=== PATIENT | female | born 1970 | race Caucasian/White ===

== ENCOUNTER → 2016-11-02 | Outpatient (CLI) | payer OTHER ==
[~2016-11-02] MED LIST: ASCO-96 PO; FLUT1DIS3 INH; HYDR-3237 PO; LEVA0.6320 INH; LORA10TA37 PO; MULT-257 PO; OMEG1CAP56 PO; OMEP-110 PO; OXYC-306 PO
== END | disposition home or self-care (01) ==
LOC: CVU 12:38
PROVIDERS: ATTEND Nurse Practitioner Primary Care
DX: I07.1 Rheumatic tricuspid insufficiency (principal); J45.909 Unspecified asthma, uncomplicated; Z87.891 Personal history of nicotine dependence; Z79.899 Other long term (current) drug therapy
CPT/HCPCS: 93306

== ENCOUNTER 2017-09-03 13:53 | Observation (INO) | payer OTHER ==
[~2017-09-03] VITALS: Ht 165.1 cm; Wt 106.9 kg
[~2017-09-03 13:53] MED LIST changes: +OMEG-172 PO; -OMEG1CAP56 PO
[2017-09-03] MEDS ORDERED: ASPIRIN 81 MG TABLET CHEW ONE (14:23)
[2017-09-03] MEDS ORDERED: ASPIRIN 81 MG TABLET CHEW PO ONE (14:30)
[2017-09-03] MEDS ORDERED: NITROGLYCERIN SINGLE TAB 0.4 MG SL ONE (14:36)
[2017-09-03 14:38] LABS: ALANINE AMINOTRANSFERASE 30 U/L (12-78); ALBUMIN 3.6 g/dL (3.4-5.0); ANION GAP 6 mmol/L (5-15); BASOPHILS # (AUTO) 0.12 x10^3/uL (0-0.1); BASOPHILS % (AUTO) 1 % (0-1); CALCIUM 9.1 mg/dL (8.5-10.1); CHLORIDE 106 mmol/L (98-107); CREATININE 0.89 mg/dL (0.55-1.02); EOSINOPHILS # (AUTO) 0.31 x10^3/uL (0-0.4); EOSINOPHILS % (AUTO) 3 % (1-7); LYMPHOCYTES # (AUTO) 2.86 x10^3/uL (1-3.4); LYMPHOCYTES % (AUTO) 28 % (22-44); MD NO; MEAN CORPUSCULAR HGB CONC 32.9 g/dL (32.4-35.8); MEAN CORPUSCULAR VOLUME 79.1 fL (80-100); MONOCYTES # (AUTO) 0.54 x10^3/uL (0.2-0.8); MONOCYTES % (AUTO) 5 % (2-9); NEUTROPHILS # (AUTO) 6.26 x10^3/uL (1.8-6.8); NEUTROPHILS % (AUTO) 62 % (42-75); PLATELET COUNT 352 x10^3/uL (130-400); RED BLOOD COUNT 5.74 x10^6/uL (3.82-5.3); RED CELL DISTRIBUTION WIDTH 15.4 % (9.6-15.2)
[2017-09-03 14:42] LABS: ALKALINE PHOSPHATASE 89 U/L (45-117); BILIRUBIN,TOTAL 0.4 mg/dL (0.2-1.0); TOTAL PROTEIN 7.7 g/dL (6.4-8.2); TROPONIN I < 0.015 ng/mL (0.000-0.045)
[2017-09-03] MEDS: NITROGLYCERIN SINGLE TAB 0.4 MG SL PRN ×3 (14:45→15:00)
[2017-09-03] MEDS ORDERED: MAALOX/HYOSCYAMINE/LIDOCAINE 45 ML BTL ONE (15:16)
[2017-09-03] MEDS ORDERED: MAALOX/HYOSCYAMINE/LIDOCAINE 45 ML BTL PO ONE (15:30)
[2017-09-03] MEDS ORDERED: MORPHINE SULFATE 4 MG/ML, 1ML ONE (16:25)
[2017-09-03] MEDS ORDERED: morphine SULFATE 10 MG/ML, 1ML IVPush ONE (16:30)
[2017-09-03] MEDS ORDERED: POLYETHYLENE GLYCOL 17 GM PACKET PO PRN (16:30)
[2017-09-03] MEDS ORDERED: ONDANSETRON ODT 4 MG PO PRN (16:30)
[2017-09-03] MEDS ORDERED: LABETALOL 5MG/ML, 20ML IVPush PRN (16:30)
[2017-09-03] MEDS ORDERED: morphine SULFATE 10 MG/ML, 1ML IVPush PRN (16:30)
[2017-09-03] MEDS ORDERED: ONDANSETRON 2MG/ML, 2ML IVPush PRN (16:30)
[2017-09-03] MEDS ORDERED: IRON SUCROSE COMPLEX 100MG/5ML IV ONE (17:00)
[2017-09-03 17:09] LABS: CHOLESTEROL, TOTAL 127 mg/dL (140-239); FREE T4 (FREE THYROXINE) 1.05 ng/dL (0.76-1.46); HDL CHOL % 34 % (28-40); HDL CHOLESTEROL (DIRECT) 43 mg/dL (40-60); LDL CHOLESTEROL,CALCULATED 71 mg/dL (54-169); LDL/HDL RATIO 1.7 (0.5-3.0); TRIGLYCERIDES 63 mg/dL (50-200); TROPONIN I < 0.015 ng/mL (0.000-0.045); VLDL CHOLESTEROL 13 mg/dL (0-25)
[2017-09-03 17:28] VITALS: BP 120/82
[2017-09-03] MEDS ORDERED: ALBUTEROL SULFATE 2.5 MG/3 ML NPPB PRN (17:30)
[2017-09-03 17:34] LABS: HEMOGLOBIN A1C 6.4 % (4.2-6.3)
[2017-09-03] MEDS: ENOXAPARIN 40 MG/0.4 ML SQ SCH (18:41)
[2017-09-03 19:19] VITALS: BP 114/76
[2017-09-03] MEDS: TEMPLATE NON-FORMULARY MED. (Fluticasone/Salmeterol** (Advair 250-50 Diskus**) 1 PUFF) INH SCH (20:30)
[2017-09-03] MEDS: ASCORBIC ACID 500 MG TABLET PO SCH (20:30)
[2017-09-03 22:53] LABS: TROPONIN I < 0.015 ng/mL (0.000-0.045)
[2017-09-04 00:43] VITALS: BP 123/81
[2017-09-04] MEDS ORDERED: NITROGLYCERIN 0.4 MG BOTTLE (25 TABS) SL ONE (00:52)
[2017-09-04] MEDS ORDERED: NITROGLYCERIN 0.4 MG/SPRAY SL PRN (01:00)
[2017-09-04] MEDS ORDERED: NITROGLYCERIN 0.4 MG BOTTLE (25 TABS) SL PRN (01:00)
[2017-09-04 01:11] VITALS: BP 103/71
[2017-09-04] MEDS ORDERED: ACETAMINOPHEN 325 MG TABLET ONE (01:12)
[2017-09-04 01:14] VITALS: BP 113/72
[2017-09-04] MEDS ORDERED: ACETAMINOPHEN 325 MG TABLET PO PRN (01:30)
[2017-09-04 05:01] LABS: ANION GAP 5 mmol/L (5-15); CALCIUM 8.7 mg/dL (8.5-10.1); CHLORIDE 105 mmol/L (98-107)
[2017-09-04 05:04] LABS: BASOPHILS # (AUTO) 0.04 x10^3/uL (0-0.1); BASOPHILS % (AUTO) 1 % (0-1); EOSINOPHILS % (AUTO) 5 % (1-7); LYMPHOCYTES # (AUTO) 2.72 x10^3/uL (1-3.4); LYMPHOCYTES % (AUTO) 34 % (22-44); MD NO; MEAN CORPUSCULAR HEMOGLOBIN 25.8 pg (27.0-34.8); MEAN CORPUSCULAR HGB CONC 32.3 g/dL (32.4-35.8); MEAN CORPUSCULAR VOLUME 79.8 fL (80-100); MEAN PLATELET VOLUME 8.1 fL (7.4-10.4); MONOCYTES # (AUTO) 0.55 x10^3/uL (0.2-0.8); MONOCYTES % (AUTO) 7 % (2-9); NEUTROPHILS # (AUTO) 4.33 x10^3/uL (1.8-6.8); NEUTROPHILS % (AUTO) 54 % (42-75); PLATELET COUNT 288 x10^3/uL (130-400); RED BLOOD COUNT 5.07 x10^6/uL (3.82-5.3); RED CELL DISTRIBUTION WIDTH 15.7 % (9.6-15.2)
[2017-09-04 05:14] LABS: ALANINE AMINOTRANSFERASE 25 U/L (12-78); ALKALINE PHOSPHATASE 70 U/L (45-117); BILIRUBIN,TOTAL 0.7 mg/dL (0.2-1.0); CREATININE 0.82 mg/dL (0.55-1.02); TOTAL PROTEIN 6.6 g/dL (6.4-8.2)
[2017-09-04] MEDS ORDERED: ASPIRIN 81 MG TABLET EC PO SCH (06:00)
[2017-09-04] MEDS ORDERED: IRON SUCROSE COMPLEX 100MG/5ML IV ONE (07:00)
[2017-09-04 07:06] VITALS: BP 113/75
[2017-09-04] MEDS ORDERED: MAALOX/HYOSCYAMINE/LIDOCAINE 45 ML BTL PO ONE (08:00)
[2017-09-04] MEDS ORDERED: PANTOPRAZOLE 40 MG IV IVPush SCH (08:00)
[2017-09-04] MEDS ORDERED: LEVALBUTEROL HCL 0.63 MG INH SCH (09:00)
[2017-09-04] MEDS ORDERED: OMEGA-3/FISH OIL CAPSULE PO SCH (09:00)
[2017-09-04] MEDS ORDERED: OMEPRAZOLE 20 MG CAPSULE.DR PO SCH (09:00)
[2017-09-04] MEDS ORDERED: SENNA/DOCUSATE TABLET PO SCH (09:00)
[2017-09-04] MEDS: TEMPLATE NON-FORMULARY MED. (Fluticasone/Salmeterol** (Advair 250-50 Diskus**) 1 PUFF) INH SCH (09:00)
[2017-09-04] MEDS ORDERED: REGADENOSON 0.4 MG/5 ML SYRINGE ONE (09:36)
[2017-09-04] MEDS: ASCORBIC ACID 500 MG TABLET PO SCH (12:29)
[2017-09-04] MEDS ORDERED: IPRA3AMP NEB (12:39)
[2017-09-04] MEDS ORDERED: HYDR12.53 PO (12:40)
[2017-09-04] MEDS ORDERED: CETI10TA24 PO (12:41)
[2017-09-04] MEDS ORDERED: MONT10TA6 PO (12:42)
[2017-09-04] MEDS ORDERED: BUDE10.2 INH (12:44)
[2017-09-04] MEDS: ENOXAPARIN 40 MG/0.4 ML SQ SCH (17:32)
[2017-09-04 17:42] VITALS: BP 120/83
[2017-09-09] MEDS ORDERED: ALPR0.25 PO (13:57)
== END 2017-09-04 18:37 | disposition home or self-care (01) ==
LOC: ED 14:58 → EDIP 15:42 → INTOOBSV 15:42 → 5SO 17:19
PROVIDERS: ADMIT Internal Medicine; ATTEND Internal Medicine
DX: R07.9 Chest pain, unspecified (principal); D50.9 Iron deficiency anemia, unspecified; J45.909 Unspecified asthma, uncomplicated; E66.9 Obesity, unspecified; K27.9 Peptic ulcer, site unspecified, unspecified as acute or chronic, without hemorrhage or perforation; K21.9 Gastro-esophageal reflux disease without esophagitis; Z82.49 Family history of ischemic heart disease and other diseases of the circulatory system; Z87.891 Personal history of nicotine dependence; Z83.3 Family history of diabetes mellitus; Z87.11 Personal history of peptic ulcer disease; Z79.899 Other long term (current) drug therapy
CPT/HCPCS: 36415; 71046; 78452; 80053; 80061; 83036; 83735; 84100; 84439; 84443; 84484; 85025; 85379; 93005; 93017; 93306; 96372; 96374; 96375; 96376; 99285; A9502; C9113; C9898; G0378; J1650; J1756; J2270; J2785